=== PATIENT | female | born 1960 | race Caucasian/White ===

== ENCOUNTER 2020-10-06 09:41 | Outpatient (CLI) | payer BC, SELFPAY ==
[2020-10-06 10:19] VITALS: BMI 26.5
--- NOTE | 2020-10-06 10:19 | NMCV_ITS ---
NM sunny perf SPECT r/s* [id number] Jina Allen Age: 60 Gender: F : 1960 Exam Date: 10/06/2020 11:10 Ordering Phys: Luisito Giordano Technologist: HUA Saldana Exam Location: [facility] Indications: Dyspnea on exertion STRESS TEST Please see separate stress test report in [facility] for full findings IMAGE PROTOCOL Rest/Stress 1 Lexiscan Day Radiopharmaceutical Dose (mCi) Administration Site Administered by Rest: Tc-99m 10.8 IV HUA Saldana Sestamibi Stress:Tc-99m 32.4 IV HUA Saldana Sestamibi Rest: 06-Oct-2020 60 Discovery 630 Stress: 06-Oct-2020 45 Discovery 630 0.4mg Lexiscan. Images obtained in supine and prone position. SPECT RESULTS Technical Quality: Good Raw Data Analysis: Subdiaphragmatic activity, Breast attenuation Image Corrections: No attenuation or motion correction applied Summed Stress Score: 0 Summed Rest Score: 4 Summed Difference Score: 0 PERFUSION FINDINGS SPECT images demonstrate homogeneous tracer distribution throughout the myocardium. FUNCTIONAL RESULTS (calculated via Gated SPECT) Stress Image LV EF (%): 70 Stress EDV (mL):84 TID: 1.15 Stress ESV (mL):25 Rest Image LV EF (%): 70 FUNCTIONAL FINDINGS: There is normal left ventricular systolic function. IMPRESSIONS Myocardial perfusion imaging is normal.TID ratio is elevated 1.1 which could be secondary to left ventricular hypertrophy/subendocardial ischemia in the absence of other parameters. Alice Riddle MD (Electronically Signed) Final Date: 06 October 2020 22:04 S
--- NOTE | 2020-10-06 10:19 | ECG_ITS ---
[facility] Test Date: 2020-10-06 Pat Name: Jina Allen Department: Room: Gender: Female Statistical Geneticist: Enedina Rede : 1960 Requested By: Luisito Giordano Order Number: [id number] Sukhwinder MD: MARTINEZ CHARLTON Interpretive Statements NAME OF STUDY: LEXISCAN SESTAMIBI STRESS TEST INDICATION: Chest Pain, NOTE: Please note that this is the electrocardiogram portion of the Lexiscan/Sestamibi stress test. The perfusion scan will be documented separately. DATA: Baseline heart rate was 46 beats per minute. Baseline blood pressure was 114/67 millimeters of mercury. Target heart rate was 158. Maximum heart rate achieved was 93. which was 58 % of the predicted target heart rate. Maximum blood pressure was 126/70 millimeters of mercury. The reason for ending the test was completion of the protocol. The patient did not experience any symptoms. ELECTROCARDIOGRAM: BASELINE: Sinus bradycardia. Normal axis. Otherwise, no ST-T changes suggestive of ischemia noted. No arrhythmia noted. EXERCISE: After Lexiscan injection, no ST-T changes suggestive of ischemic noted. No arrhythmia noted. CONCLUSION: Please note due to baseline abnormality of the EKG specificity and sensitivity of the EKG portion of LexiScan MIBI stress test will be low 1. EKG not suggestive of ischemia 2. Lexiscan injection unremarkable. 3. Perfusion scan will be documented separately. Electronically Signed On 10-08-2020 15:50:12 MOBILE APPLICATION DEVELOPER by MARTINEZ CHARLTON [email or web address]
[2020-10-06] MEDS: regadenoson 0.4 Mg/5 ml Syringe IVP (12:24)
[2020-10-06 12:25] VITALS: BP 123/71; PULSE 85
== END 2020-10-06 09:42 | disposition home or self-care (01) ==
LOC: CDL 09:43
PROVIDERS: PCP Nurse Practitioner Family; Visit Provider Family Medicine
DX: R06.00 Dyspnea, unspecified (principal); R68.89 Other general symptoms and signs; R07.9 Chest pain, unspecified; I25.9 Chronic ischemic heart disease, unspecified
CPT/HCPCS: 78452; 93017; A9500; J2785

== ENCOUNTER → 2020-11-22 14:37 | Outpatient (BNVA) | payer BC, SELFPAY | PROVIDERS: PCP Nurse Practitioner Family; Visit Provider Nurse Practitioner Family | DX: Z20.828 Contact with and (suspected) exposure to other viral communicable diseases (principal); R68.89 Other general symptoms and signs | CPT/HCPCS: 87400; 87635 ==

== ENCOUNTER 2023-07-24 08:57 | Outpatient (CLI) | payer MEDICARE, OTHER, SELFPAY ==
--- NOTE | 2023-07-24 09:00 | USCV_ITS ---
Jina Allen Age: 63 Gender: F : 1960 Exam Date: 07/24/2023 09:38 Ordering Phys: Leilani Lara Technologist: Nicolasa Shrestha [place] [facility] [place]: pre op clearance BP: 126 / 70 HR: 62 Rhythm: Other Technical Quality: Good MEASUREMENTS (Male / Female) Normal Values 2D ECHO LV Diastolic Diameter PLAX 4.5 cm 4.2 - 5.9 / 3.9 - 5.3 cm LV Systolic Diameter PLAX 2.3 cm IVS Diastolic Thickness 1.0 cm 0.6 - 1.0 / 0.6 - 0.9 cm IVS Systolic Thickness 1.3 cm LVPW Diastolic Thickness 1.0 cm 0.6 - 1.0 / 0.6 - 0.9 cm LVPW Systolic Thickness 1.6 cm LV Ejection Fraction 2D Teich 80.5 % LV Ejection Fraction MOD 2C 61.7 % LV Ejection Fraction 2C AL 62.4 % LA Diameter 2.2 cm LA Width 2.5 cm LA Height 4.0 cm RA Width 2.8 cm RA Height 4.0 cm Aorta at Sinotubular Diameter 2.9 cm IVC Diameter 1.1 cm M-MODE Aortic Annulus Diameter 3.0 cm LA Ao Ratio MM 0.8 MV E Point Septal Separation 0.4 cm DOPPLER AV Peak Velocity 161.0 cm/s LVOT Peak Velocity 136.0 cm/s MV Peak Velocity 102.0 cm/s MV Area PHT 4.5 cm squared Mitral E to A Ratio 0.9 MV E' Velocity 56.5 cm/s Mitral E to MV E' Ratio 7.6 Mitral E to LV E' Lateral Ratio 7.7 Mitral E to LV E' Septal Ratio 7.5 TR Peak Velocity 145.8 cm/s TR Peak Gradient 8.5 mmHg Right Atrial Pressure 5.0 mmHg Pulmonary Artery Systolic Pressu 13.5 mmHg PV Peak Velocity 100.0 cm/s RV Acceleration Time 0.2 s RV Ejection Time 0.3 s RV AcT/ET 0.5 FINDINGS Left Ventricle Normal left ventricular size, systolic function and wall thickness, with no regional wall motion abnormalities. Grade I/IV diastolic dysfunction (abnormal relaxation filling pattern), normal to mildly elevated filling pressures. Left ventricular ejection fraction is estimated at 65 %. Right Ventricle The right ventricle is normal in size and function. Right Atrium The right atrium is normal in size. Left Atrium The left atrium is normal in size. Mitral Valve Structurally normal mitral valve without significant stenosis or prolapse. There is no mitral regurgitation. Aortic Valve Structurally normal aortic valve without significant sclerosis or stenosis. There is no aortic regurgitation. Tricuspid Valve Structurally normal tricuspid valve without significant stenosis or regurgitation. Pulmonary artery systolic pressure is normal. Pulmonic Valve Structurally normal pulmonic valve without significant stenosis. There is no pulmonic regurgitation. Pericardium Normal pericardium without effusion. Aorta Normal ascending aorta dimension. IVC The inferior vena cava appears normal. CONCLUSIONS Normal left ventricular size, systolic function and wall thickness, with no regional wall motion abnormalities. Grade I/IV diastolic dysfunction (abnormal relaxation filling pattern), normal to mildly elevated filling pressures. Left ventricular ejection fraction is estimated at 65 %. There are no prior echocardiogram studies to compare. Dr. Mode Anthony MD (Electronically Signed) Final Date: 24 July 2023 15:41 S
== END 2023-07-24 08:58 | disposition home or self-care (01) ==
LOC: RAD 09:00
PROVIDERS: PCP Nurse Practitioner Family; Visit Provider Nurse Practitioner Family
DX: Z01.818 Encounter for other preprocedural examination (principal); I49.3 Ventricular premature depolarization
CPT/HCPCS: 93306

== ENCOUNTER → 2023-07-27 10:26 | Outpatient (BNVA) | payer MEDICARE, OTHER, SELFPAY | PROVIDERS: PCP Nurse Practitioner Family; Visit Provider Internal Medicine Cardiovascular Disease | DX: R07.9 Chest pain, unspecified (principal); R06.02 Shortness of breath; Z91.89 Other specified personal risk factors, not elsewhere classified | CPT/HCPCS: 99204 ==

== ENCOUNTER 2023-08-14 05:49 | Outpatient (CLI) | payer MEDICARE, OTHER, SELFPAY ==
[2023-08-14] VITALS (8 sets, daily range): BP systolic 119–147; BP diastolic 64–69; PULSE 48–60; RESP 14–16; TEMP 36.7; O2SAT 92–96; BMI 29.2
--- NOTE | 2023-08-14 06:00 | XACV_ITS ---
Exam Room: 2 Ht: 160 cm Wt: 75 kg BSA: 1.85 m2 Gender: Female : 1960 Any Known Allergies: Other Exam Priority: Routine Procedure(s): Procedure Description: Diagnostic procedure Procedure Description: Left Heart Catheterization Procedure Description: Left ventriculography Procedure Description: Coronary Angiography Raj JIMENEZ; Diagnostic Cath Status: Elective Diagnostic Findings * Patient with multiple symptoms for several years including syncope. Noninvasive testing normal. Continues with disabling symptoms so angiography recommended. * Procedure initially attempted from the right radial artery. The sheath was placed without difficulty. There was an obstruction encountered at the level of the elbow. A Glidewire would not pass and so the procedure was abandoned from this entry point. The sheath was removed and the procedure completed from the right common femoral artery. * Coronary angiography reveals right coronary artery dominance. The left main coronary artery is normal and bifurcates into the LAD and circumflex. There is no obstructive disease in the LAD or circumflex. The right coronary artery is a large dominant vessel and ends distally as the posterior descending artery and posterior left ventricular branch. The right coronary artery is normal. Conclusions 1. Normal coronary arteries. Normal left ventriculography. Recommendations * None. I spoke to the patient's immediately after the procedure and the patient prior to discharge.. Interventional RX Recommendation: none Diagnostic RX Recommendation: none Anticoagulation: Heparin Ventriculography Ejection Fraction: 65.0 % Pressures Phase:Rest AO : 117 / 79 ( 99 ) @ 8:35:00 AM 149 / 74 ( 107 ) @ 8:39:00 AM 147 / 73 ( 106 ) @ 8:39:00 AM LV : 158 / -6 / 27 @ 8:38:00 AM 145 / -2 / 22 @ 8:39:00 AM 147 / -3 / 21 @ 8:39:00 AM Valves Phase:DefaultPhase AV : 4.0 @ 7:45:30 AM 4.0 @ 7:45:30 AM AV Mean Gradient: 14.0 @ 7:45:30 AM 14.0 @ 7:45:30 AM Clinical Evaluation EBL: 5mL-10mL Procedural Details Procedure Consent Obtained. Pre-Procedure Time Out. Identified patient by full name and date of as verbalized by the patient/guarantor. Does the consent match the physician's order: Yes. Accurate & Complete Informed Consent: Yes. Inpatient/Outpatient History & Physical on Chart: Yes. If H&P is completed, is and addenduem needed: No. Visualize and Verify Site with Patient/Guarantor: N/A. Relevant Radiology Images available: Yes. The risks, benefits, and alternatives of sedation and/or procedure were discussed by physician. The patient agrees to continue. Procedure started. [facility] Clinical Fraility Score: 3: Managing Well. Farm Equipment Engineer Indications: Syncope. Chest Pain Symptom Assessment: Asymptomatic. Cardiovascular Instability: No. PERRLA. Strong, equal hand lubrication technician bilaterally. Lungs clear x 5 lobes. IV Site on Arrival: 20 gauge in the left anticubital. IV Fluids: 0.9% NaCl at KVO. 0 mL infused prior to dental laboratory supervisor. Pre Procedural Pulses: bilateral dorsalis pedis was Doppled. Pre Procedural Pulses: bilateral posterior tibial was Doppled. Pre Procedural Pulses: bilateral radial was 3+. Oxygen started at 2liters/min via nasal canula. right groin was prepped with chloroprep then draped in the usual sterile fashion. right radial was prepped with chloroprep then draped in the usual sterile fashion. Physician notified. Patient's family in CPRU Room #3. Dr. Anthony will update at the completion of the procedure. Equipment: 6F - Radial. Cardiac Cath Pack. ACIST Manifold Kit Model BT 2000. Heparinized Saline (2 units/mL), 1000 mL bag. Physician arrived. Baseline sample Acquired. HR: 50 BPM. Physician scrubbed in. Immediate Pre-Procedure Time Out. Correct Patient: Yes; Correct Procedure: Yes; Correct Site: Yes; Correct Patient Position: Yes; Correct Supplies: Yes; Dried Flammable Prep: Yes; Blood Products Available: N/A;. Lidocaine 1% infiltrated to the right radial. Arterial access obtained. Unable to thread sheath wire. Wire and needle out. Dr. Anthony holding manual pressure. Arterial access obtained. A 5 [place] TIG catheter in over the exchange J wire. Exchange J wire out. Exchange stiff angled glidewire in. Glidewire out. Catheter out. Will abort radial access and move to right femoral. A TR Band was successful obtaining hemostatsis at the Right Radial artery insertion site. Lidocaine 1% infiltrated to the right groin. Arterial access obtained. A 6 [place] JL4 catheter in over the exchange J wire. Multiple views taken of left coronary artery. Catheter removed over the exchange J wire. A 5 [place] JR4 catheter in over the exchange J wire. Multiple views taken of right coronary artery. Catheter removed over the exchange J wire. A 5 [place] Angled Pig catheter in over the exchange J wire. EDP Sample taken: LV 158/-6,27; HR: 62 BPM; SpO2: 98%. LV gram performed in RODRIGUEZ @ 10 mL/second for a total of 30 mL. EDP Sample taken: LV 145/-3,22; HR: 67 BPM; SpO2: 94%. Pullback taken: LV 147/-4,21; AO 149/74(107); Mean: 14mmHg, Peak to Peak: 4mmHg, SEP: 19sec/min; HR: 62 BPM; SpO2: 94%. Catheter removed over the exchange J wire. Physician scrubbed out. A Suture was successful obtaining hemostatsis at the Right Femoral artery insertion site. Sheath(s) sutured into position with 2-0 silk and sterile 4x4's and Op-site applied over the site. No oozing or signs and symptoms of hematoma noted. Arterial sheath flushed and connected to tranducer and pressure bag with heparinized saline. Post Procedure: Pulses reassessed and unchanged. PERRLA. Strong, equal hand lubrication technician bilaterally. No VTE prophylaxis required. Medication's Wasted: Nitro = 49.8 mg. Medication's Wasted: Other = Versed 1 mg. Medication's Wasted: Other = Fentanyl 50 mcg. Medication's Wasted: Heparin = 2500 units. Total IV fluids: 55 mL. Post-op diagnosis: Normal coronaries. Complications: none. Estimated blood loss: 5mL-10mL. Responsiveness - Normal response to verbal stimuli; alert and oriented, PERRLA. Airway - Unaffected, no intervention required; spontaneous ventilation. Circulation: W/N/L, pulses unchanged. Nausea/Vomiting: No. Procedure completed. Patient transferred by bed to CPRU. Vital chart was stopped. Access Site Site: Right Radial artery Sheath Size: 6 Fr Hemostasis Method: TR Band Hemostasis Success: Successful Site: Right Femoral artery Sheath Size: 6 Fr Hemostasis Method: Suture Hemostasis Success: Successful Procedure Medications Start: 7:01 AM Stop: 7:01 AM Medication: Versed Amount: 1 mg Route: I.V. Start: 7:01 AM Stop: 7:01 AM Medication: Fentanyl Amount: 50 mcg Route: I.V. Start: 7:17 AM Stop: 7:17 AM Medication: Nitrogylcerin Amount: 200 mcg Route: I.A. Start: 7:34 AM Stop: 7:34 AM Medication: Heparin Amount: 1500 units Route: I.V. I, the attending physician, have reviewed and verified all procedure medications. Yes, all medications given per verbal order History/Risk Factors Hypertension: Yes Dyslipidemia: No Peripheral Arterial Disease (PAD): No Myocardial Infarction ([place]): No Obesity: Yes Renal Disease: No Tobacco Use: Current/Recent(w/in 1 year) Prior Interventions PCI: No CABG: No Valve Surgery: No Report Signatures Finalized by Dr. Mode Anthony MD on 08/14/2023 07:53 AM
[2023-08-14] MEDS: diphenhydrAMINE 50 mg Capsule PO (06:15)
[2023-08-14] MEDS: aspirin 325 mg Tablet PO (06:15)
[2023-08-14 06:17] LABS: Basophils % 0.5 %; Eosinophils # 0.1 10^3/uL (0.0-0.8); Eosinophils % 2.4 %; Hematocrit 42.7 % (36-47); Lymphocytes # 3.6 10^3/uL (0.8-4.8); Lymphocytes % 62.6 %; Mean Corpuscular HGB Conc 32.6 g/dL (30-55); Mean Corpuscular Hemoglobin 31.2 pg (27-33); Mean Corpuscular Volume 95.7 fl (85-98); Mean Platelet Volume 8.9 fL (7.4-10.4); Monocytes # 0.5 10^3/uL (0.2-0.9); Monocytes % 9.4 %; Neutrophils # 1.43 10^3/uL (1.8-7.7); Neutrophils % 24.9 %; Nucleated Red Blood Cells % 0 %; Platelet Count 263 10^3/cmm (157-399); Red Blood Count 4.46 10^6/uL (3.85-5.65); Red Cell Distribution Width 13.4 % (12.1-15.1); White Blood Count 5.75 10^3/uL (3.29-11.43)
[2023-08-14 06:34] LABS: Anion Gap 12.2 (5-19); Blood Urea Nitrogen 18 mg/dL (8-23); Calcium 9.6 mg/dL (8.5-10.5); Carbon Dioxide 27 mmol/L (22-29); Chloride 105 mmol/L (98-107); Glucose 94 mg/dL (65-115); Osmolality Calculated 292 mOsm/kg (285-295); Potassium 4.2 mmol/L (3.5-5.1); Sodium 140 mmol/L (136-145)
--- NOTE | 2023-08-14 06:53 | W.PM.OPSUD ---
Surgery/Procedure H&P Update DATE OF PROCEDURE: August 14, 2023 DATE H&P PERFORMED: 07/27/23 CHANGES TO PREVIOUS DOCUMENTATION: None PREOP DIAGNOSIS: shortness of breath PRIMARY INDICATION FOR PROCEDURE: shortness of brath, syncope PLANNED PROCEDURE: Operation Date: 08/14/23 07:00 Proposed Procedures p left heart cath [id number],R94.39(Left) - Mode Anthony MD
--- NOTE | 2023-08-14 08:00 | PC.NURSE ---
Recovery Note Patient in CPRU 3 recovery unit post cath. Pt alert and oriented, breathing even and non-labored on room air. Denies pain. Pt placed on bedside bus monitor. TR band to right wrist, asymptomatic. Radial pulse palpable. Right groin sheath sutured in place with pressure bag. Sheath site asymptomatic, dressing clean and dry. Radial pulse palpable, pedal pulses present with doppler. Call light in reach. Report called to MANUEL Rincon by Kristina Sparks RN.
[2023-08-14] MEDS: sodium chloride 0.9% 1,000 ML 100 ML IV (08:30)
--- NOTE | 2023-08-14 08:39 | PC.NURSE ---
Pt transferred to ICU 9 to finish recovery. Bedside report and site check completed with MANUEL fang.
--- NOTE | 2023-08-14 09:57 | P.DS_ITS ---
Discharge Providers Date of Admission: 08/14/2023 Date of Discharge: August 14, 2023 Attending Provider at Admission: rossy Attending Provider at Discharge: Mode Anthony MD Primary Care Provider: Leilani Lara Diagnoses at Discharge Discharge Diagnosis (1) History of fainting spells of unknown cause: Status: Acute (2) SOB (shortness of breath): Status: Acute Reason for Visit Reason for Visit: R94.39 Brief History: The patient was seen in the office about 3 weeks ago with a multitude of complaints that have been going on for about 3 years. All noninvasive testing and multiple visits have been unremarkable. She continues to have disabling symptoms so I recommended coronary angiography to answer the question once and for all. Hospital Course Hospital Course Initially the procedure was attempted from the right radial artery. The sheath went in without any difficulty however I could not pass a Glidewire past the elbow. I decided not to place any catheters and stopped the procedure from the arm. I then switched to the right groin where the procedure was completed. Coronary arteries and left ventriculography are normal. There were no complic ations. At the time of discharge the right radial area and the right groin are without bleeding, hematoma, pain or other vascular anomaly. There is a good distal pulse in both extremities the right arm and right leg. Patient has been instructed to return for pain, bleeding or tenderness in either location. She will follow-up with the nurse practitioner in a week or 10 days. There is no need for cardiology follow-up after this. Physical Exam Narrative: GENERAL: In general she looks and feels well HEENT: Exam within normal limits. [] NECK: Supple without jugular vein distention. The carotid upstroke is normal without bruits. [] BACK: Exam normal. [] LUNGS: Clear. [] HEART: Regular rate and rhythm. [] ABDOMEN: Benign without organomegaly or tenderness. [] EXTREMITIES: No edema. At the time of discharge the right wrist and right groin are flat, dry without bleeding, hematoma, pain or other vascular anomaly. There are good distal pulses. NEUROLOGIC: Exam normal. [] SKIN: Unremarkable. [] Discharge Data Studies Completed and Pending Completed Studies During Hospitalization Category Date Time Status RAM PRESS OPERATOR request for service Routine Exams 08/14/23 06:00 Completed Laboratory Results WBC 5.75 10^3/uL (3.29-11.43) 08/14/23 06:08 RBC 4.46 10^6/uL (3.85-5.65) 08/14/23 06:08 Hgb 13.90 g/dL (11.27-16.99) 08/14/23 06:08 Hct 42.7 % (36-47) 08/14/23 06:08 MCV 95.7 fl (85-98) 08/14/23 06:08 MCH 31.2 pg (27-33) 08/14/23 06:08 MCHC 32.6 g/dL (30-55) 08/14/23 06:08 RDW 13.4 % (12.1-15.1) 08/14/23 06:08 Plt Count 263 10^3/cmm (157-399) 08/14/23 06:08 MPV 8.9 fL (7.4-10.4) 08/14/23 06:08 Neut % (Auto) 24.9 % 08/14/23 06:08 Lymph % (Auto) 62.6 % 08/14/23 06:08 [place] % (Auto) 9.4 % 08/14/23 06:08 Eos % (Auto) 2.4 % 08/14/23 06:08 Baso % (Auto) 0.5 % 08/14/23 06:08 Neut # (Auto) 1.43 10^3/uL (1.8-7.7) L 08/14/23 06:08 Lymph # (Auto) 3.6 10^3/uL (0.8-4.8) 08/14/23 06:08 [place] # (Auto) 0.5 10^3/uL (0.2-0.9) 08/14/23 06:08 Eos # (Auto) 0.1 10^3/uL (0.0-0.8) 08/14/23 06:08 Baso # (Auto) 0.0 10^3/uL (0.0-0.1) 08/14/23 06:08 Nucleated RBC % (auto) 0 % 08/14/23 06:08 Nucleated RBCs # 0.0 /100WBC 08/14/23 06:08 Sodium 140 mmol/L (136-145) 08/14/23 06:08 Potassium 4.2 mmol/L (3.5-5.1) 08/14/23 06:08 Chloride 105 mmol/L (98-107) 08/14/23 06:08 Carbon Dioxide 27 mmol/L (22-29) 08/14/23 06:08 Anion Gap 12.2 (5-19) 08/14/23 06:08 BUN 18 mg/dL (8-23) 08/14/23 06:08 Creatinine 0.8 mg/dL (0.5-0.9) 08/14/23 06:08 GFR Calculation 72.0 mL/min (90-130) L 08/14/23 06:08 Glucose 94 mg/dL (65-115) 08/14/23 06:08 Calculated Osmolality 292 mOsm/kg (285-295) 08/14/23 06:08 Calcium 9.6 mg/dL (8.5-10.5) 08/14/23 06:08 Procedures Performed Left heart catheterization, coronary angiography, left ventriculography. Vitals Last Vital Signs Temp 98.0 F 08/14/23 06:00 Pulse 51 L 08/14/23 09:00 Resp 14 08/14/23 08:43 BP 119/68 08/14/23 08:43 Pulse Ox 96 08/14/23 09:00 O2 Del Method Room Air 08/14/23 09:00 Discharge Plan Discharge Patient Disposition: Home Prescriptions: Continued gabapentin 800 mg tablet 400 mg PO DAILY oxybutynin chloride 5 mg tablet 10 mg PO DAILY duloxetine [Cymbalta] 60 mg capsule,delayed release(DR/EC) 60 mg PO DAILY magnesium oxide 400 mg magnesium Tablet 400 mg PO DAILY Ocuvite Tablet 1 tab PO DAILY Vitamin D3 Discharge Orders: Discharge Order (Routine); Ordered 08/14/23 Ordered By: Mode Anthony Referrals: Mery Thomas FNP [Nurse Practitioner] - 08/22/23 10:00 am Diet: Regular Activity: Limit activity as instructed Patient Instructions: Shortness of Breath (DC), Left Heart Catheterization (DC), Post Angiogram Home Care Instructions Activity Restrictions/Additional Instructions: No lifting over 5 pounds for 2 days. Report bleeding from the right wrist or right groin immediately. Report pain or swelling as well. Discharge Attestations Time Spent in Discharge Care*: greater than 30 min Quality Metrics Clinical Quality Measures [ No reported AMI, CVA or VTE this stay] Coding Level of Care Code 83331 Total time (in minutes) for Discharge: 40 Diagnoses History of fainting spells of unknown cause Z91.89 SOB (shortness of breath) R06.02
--- NOTE | 2023-08-14 11:10 | PC.NURSE ---
0930- Sheathed pulled Explained procedure to pt. Femoral artery palpable +3. Manual pressure held for 20 mins on right groin. No hematoma, bleeding or swelling. pedal pulses are palpbale +3. Instructed pt on activity restrictions post cardiac cath. such as bedrest for 5 to 6 hrs per doctor Anthony. Educated pt to let nurse know if she needs to use the bedpan, if unusual pain, burning or tingling sensation noticed. Call light provided to pt. Pt verbalizes understanding.
--- NOTE | 2023-08-14 15:15 | PC.NURSE ---
Ambulating down hallways. No bleeding or hematoma,swelling noted during activity.
--- NOTE | 2023-08-14 15:51 | PC.NURSE ---
Discharge Note Patient discharged to home via private vehicle accompanied by . Discharge instructions reviewed with patient and/or senior sales representative. Mobile pharmacy medications and/or prescriptions provided. Belongings/home medications returned.
== END 2023-08-14 15:51 | disposition home or self-care (01) ==
LOC: CCL 05:50 → ICU 08:37
PROVIDERS: PCP Nurse Practitioner Family; Visit Provider Internal Medicine Cardiovascular Disease
DX: R06.02 Shortness of breath (principal); Z91.89 Other specified personal risk factors, not elsewhere classified; R94.39 Abnormal result of other cardiovascular function study; I10 Essential (primary) hypertension; E66.9 Obesity, unspecified; Z68.29 Body mass index [BMI] 29.0-29.9, adult
CPT/HCPCS: 36415; 80048; 85025; 93458; 96365; 99152; 99153; C1769; C1887; C1894; J1644; J2250; J3010; J3490; J7030; Q0163; Q9967

== ENCOUNTER → 2024-02-23 09:07 | Outpatient (BNVA) | payer MEDICARE, OTHER, SELFPAY | PROVIDERS: PCP Nurse Practitioner Family; Visit Provider Nurse Practitioner Family | DX: L91.8 Other hypertrophic disorders of the skin (principal); L21.8 Other seborrheic dermatitis; L73.8 Other specified follicular disorders; D22.5 Melanocytic nevi of trunk; L82.1 Other seborrheic keratosis | CPT/HCPCS: 11200; 99203 ==

== ENCOUNTER → 2025-02-25 09:11 | Outpatient (BNVA) | payer MEDICARE, OTHER, SELFPAY | PROVIDERS: PCP Nurse Practitioner Family; Visit Provider Nurse Practitioner Family | DX: L82.1 Other seborrheic keratosis (principal); L72.0 Epidermal cyst; L73.8 Other specified follicular disorders; D18.01 Hemangioma of skin and subcutaneous tissue; D23.72 Other benign neoplasm of skin of left lower limb, including hip; L57.8 Other skin changes due to chronic exposure to nonionizing radiation; X32.XXXA Exposure to sunlight, initial encounter; L81.4 Other melanin hyperpigmentation; Z80.8 Family history of malignant neoplasm of other organs or systems; B07.8 Other viral warts; L53.8 Other specified erythematous conditions; L29.89 Other pruritus | CPT/HCPCS: 17110; 99213 ==

== ENCOUNTER → 2025-07-08 09:29 | Outpatient (BNVA) | payer MEDICARE, OTHER, SELFPAY | PROVIDERS: PCP Nurse Practitioner Family; Visit Provider Nurse Practitioner Family | DX: L73.8 Other specified follicular disorders (principal); D18.01 Hemangioma of skin and subcutaneous tissue; L57.8 Other skin changes due to chronic exposure to nonionizing radiation; X32.XXXA Exposure to sunlight, initial encounter; L81.4 Other melanin hyperpigmentation; Z80.8 Family history of malignant neoplasm of other organs or systems; L82.0 Inflamed seborrheic keratosis; R20.8 Other disturbances of skin sensation; L53.8 Other specified erythematous conditions; B07.8 Other viral warts; R23.8 Other skin changes; R20.9 Unspecified disturbances of skin sensation | CPT/HCPCS: 17110; 99213 ==